=== PATIENT | male | born 1935 | race Caucasian/White ===

== ENCOUNTER 2020-12-11 13:35 | Emergency (ER) | payer OTHER ==
[2020-12-11 13:42] VITALS: BMI 26.6
[2020-12-11] MEDS ORDERED: ACETAMINOPHEN 1000 MG/100 ML VIAL (NON FORMULARY) IVPB ONE (13:43)
[2020-12-11] MEDS ORDERED: ACETAMINOPHEN INJECTION 100 ML IVPB ONE (14:05)
[2020-12-11] MEDS ORDERED: BAMLANIVIMAB 700 MG in SODIUM CHLORIDE 250 ML IVPB ONE (14:30)
[2020-12-11 14:55] VITALS: TEMP 98
[2020-12-11 15:43] LABS: BASO % 1.2 % (0-2.0); HEMATOCRIT 41.6 % (35.4-49); HEMOGLOBIN 14.3 GM/dL (11.7-16.9); MCH 30.4 pg (25.7-33.7); MCHC 34.3 g/dl (32.0-35.9); MEAN CELL VOLUME 88.5 fl (80-96); MEAN PLT VOLUME 9.3 fl (7.5-11.1); NEUT % 54.8 % (42.8-82.8); PLATELET COUNT 183 K/MM3 (134-434); RDW 14.8 % (11.9-15.9); WHITE BLOOD COUNT 5.1 K/mm3 (4.0-10.0)
[2020-12-11 16:04] VITALS: BP 164/75; PULSE 82
[2020-12-11 16:04] LABS: POTASSIUM 5.1 mmol/L (3.5-5.1)
[2020-12-11 16:06] LABS: CALCIUM 8.4 mg/dL (8.5-10.1)
[2020-12-11 16:07] LABS: BLOOD UREA NITROGEN 10.4 mg/dL (7-18)
[2020-12-11 16:10] LABS: CREATININE 1.1 mg/dL (0.55-1.3)
[2020-12-11 16:12] LABS: BILIRUBIN,TOTAL 0.6 mg/dL (0.2-1); TOT PROT 8.4 g/dl (6.4-8.2)
== END 2020-12-11 16:49 | disposition home or self-care (01) ==
LOC: JCOVINFU 13:35
DX: U07.1 COVID-19 (principal)
CPT/HCPCS: 36415; 80053; 85025; 99284-25; J0131; M0239; Q0239